=== PATIENT | female | born 1970 | race Native Hawaiian/Other Pacific Islander ===

== ENCOUNTER 2017-01-05 11:11 | Emergency (ER) | payer MEDICAID, OTHER ==
[~2017-01-05] VITALS: Ht 160 cm; Wt 72.5 kg
[~2017-01-05 11:11] MED LIST: METR-1 PO
[2017-01-05 11:15] VITALS: BP 145/83; PULSE 84; RESP 18; TEMP 98; O2SAT 99
[2017-01-05 11:30] LABS: BLOOD, URINE TRACE (NEG); GLUCOSE,URINE NEG (NEG); KETONE, URINE NEG (NEG); NITRITE,URINE NEG (NEG)
[2017-01-05 11:36] LABS: METHOD OF COLLECTION CLEAN CATCH
[2017-01-05 11:37] LABS: URINE COLOR STRAW (YELLW/STRAW)
[2017-01-05 11:38] LABS: BACTERIA, URINE MOD /hpf; COMMENT (UR) CULTURE INDICATED; COMMENT2 (UR) MUCOUS PRESENT; CULTURE IF INDICATED CULTURE INDICATED; RBC, URINE 0-3 /hpf (0-3)
--- NOTE | 2017-01-05 11:41 | PD ---
HPI Chief Complaint: Abdominal Pain Time Seen by Provider: 11:25 Travel History International Travel<30 days: No Contact w/Intl Traveler<30days: No Traveled to known affect area: No History of Present Illness HPI The patient was seen and examined in the presence of the nurse. This patient complains of pelvic pain with some vaginal bleeding. Duration one day. Symptoms severity is mild. No alleviating factors. She also complains of feeling weak. Then she goes on to mention that she is lightheaded and achy and she becomes tearful and seems very anxious and panicky. Denies suicidal ideation. She says she is been very stressed. PFS Past Medical History Diminished Hearing: No Reproductive: Yes (IUD IN PLACE) Immunizations Current: Yes ?: Not LMP: 12/26/16 : 5 Para: 4 Miscarriage: 1 Tubal Ligation: Yes Social History Alcohol Use: No Tobacco Use: Yes (08/31 ppd) Substance Use: No Allergies-Medications (Allergen,Severity, Reaction): Coded Allergies: No Known Allergies (Verified , 01/05/17) Reported Meds & Prescriptions Reported Meds & Active Scripts Active No Active Prescriptions or Reported Medications Review of Systems General / Constitutional: No: Fever Eyes: No: Visual changes HENT: Positive: Lightheadedness, No: Headaches Cardiovascular: No: Chest Pain or Discomfort Respiratory: No: Shortness of Breath Gastrointestinal: Positive: Abdominal Pain Genitourinary: Positive: Pelvic Pain, Vaginal Bleeding, No: Dysuria Musculoskeletal: Positive: Weakness, No: Pain Skin: No Rash Neurologic: Positive: Weakness, Dizziness Psychiatric: Positive: Anxiety Endocrine: No: Polydipsia Hematologic/Lymphatic: No: Easy Bruising Physical Exam Narrative GENERAL: Well-nourished, well-developed patient in no apparent distress but seems anxious and is tearful. SKIN: Focused skin assessment reveals no rash and nodules. Skin is Warm and dry. HEAD: Atraumatic. Normocephalic. EYES: Pupils equal and round. No scleral icterus. No injection or drainage. ENT: No nasal bleeding or discharge. Mucous membranes pink and moist. NECK: Trachea midline. No JVD. CARDIOVASCULAR: Regular rate and rhythm. No murmur appreciated. RESPIRATORY: No accessory muscle use. Clear to auscultation. Breath sounds equal bilaterally. GASTROINTESTINAL: Abdomen soft, non-tender, nondistended. Hepatic and splenic margins not palpable. MUSCULOSKELETAL: No obvious deformities. No clubbing. No cyanosis. No edema. NEUROLOGICAL: Awake and alert. No obvious cranial nerve deficits. Motor grossly within normal limits. Normal speech. PSYCHIATRIC: Anxious mood and affect; insight and judgment reasonable. Data Data Last Documented VS Vital Signs Date Time Temp Pulse Resp B/P Pulse Ox O2 Delivery O2 Flow Rate FiO2 01/05/17 11:51 69 20 123/72 100 Room Air 01/05/17 11:15 98.0 Orders Urinalysis - C+S If Indicated (01/05/17 11:22) Electrocardiogram (01/05/17 ) Iv Access Insert/Monitor (01/05/17 11:34) Complete Blood Count With Diff (01/05/17 11:34) Basic Metabolic Panel (Bmp) (01/05/17 11:34) Troponin I (01/05/17 11:34) Ckmb (Isoenzyme) Profile (01/05/17 11:34) Ed Urine Pregnancytest Poc (01/05/17 11:34) Urine Culture (01/05/17 11:25) Labs Laboratory Tests Test 01/05/17 01/05/17 11:25 11:40 Urine Collection Type CLEAN CATCH Urine Color STRAW Urine Turbidity SLIGHT Urine pH 6.0 Urine Specific [place] 1.003 Urine Protein NEG mg/dL Urine Glucose (UA) NEG mg/dL Urine Ketones NEG mg/dL Urine Occult Blood TRACE Urine Nitrite NEG Urine Bilirubin NEG Urine Leukocyte Esterase TRACE Urine RBC 0-3 /hpf Urine WBC 6-8 /hpf Urine Squamous Epithelial 6-8 /hpf Cells Urine Amorphous Sediment FEW Urine Bacteria MOD /hpf Microscopic Urinalysis Comment CULTURE INDICATED Urine Collection Time 1125 White Blood Count 8.9 TH/MM3 Red Blood Count 4.31 MIL/MM3 Hemoglobin 13.4 GM/DL Hematocrit 39.4 % Mean Corpuscular Volume 91.4 FL Mean Corpuscular Hemoglobin 31.2 PG Mean Corpuscular Hemoglobin 34.1 % Concent Red Cell Distribution Width 11.5 % Platelet Count 191 TH/MM3 Mean Platelet Volume 9.2 FL Neutrophils (%) (Auto) 66.8 % Lymphocytes (%) (Auto) 27.5 % Monocytes (%) (Auto) 5.1 % Eosinophils (%) (Auto) 0.3 % Basophils (%) (Auto) 0.3 % Neutrophils # (Auto) 5.9 TH/MM3 Lymphocytes # (Auto) 2.5 TH/MM3 Monocytes # (Auto) 0.5 TH/MM3 Eosinophils # (Auto) 0.0 TH/MM3 Basophils # (Auto) 0.0 TH/MM3 CBC Comment DIFF FINAL Differential Comment Sodium Level 141 MEQ/L Potassium Level 3.9 MEQ/L Chloride Level 107 MEQ/L Carbon Dioxide Level 26.3 MEQ/L Anion Gap 8 MEQ/L Blood Urea Nitrogen 8 MG/DL Creatinine 0.70 MG/DL Estimat Glomerular Filtration 90 ML/MIN Rate Random Glucose 97 MG/DL Calcium Level 8.7 MG/DL Total Creatine Kinase 68 U/L Troponin I LESS THAN 0.02 NG/ML MDM Medical Decision Making Medical Screen Exam Complete: Yes Emergency Medical Condition: Yes Medical Record Reviewed: Yes Differential Diagnosis Ectopic , dysfunctional uterine bleeding, anxiety Narrative Course I have reviewed the patient's electronic medical record. She was here 6 months ago with vaginal discharge complaint IV placed Urine is negative CBC is normal Metabolic profile is normal CK is normal Troponin is normal Urinalysis is not suspicious for infection but will be cultured Patient's vital signs and exam are normal. Stable for outpatient family doctor follow-up Diagnosis Primary Impression: Pelvic pain Additional Impressions: Generalized weakness Anxiety Additional Instructions: The patient was advised to follow up with their physician and return if they worsen. Med/Other Pt SpecificInfo: Other Scripts No Active Prescriptions or Reported Meds Disposition: 01 DISCHARGE HOME Condition: Stable Cam Tillman MD January 05, 2017 11:40
[2017-01-05 11:51] VITALS: BP 123/72; PULSE 69; RESP 20; O2SAT 100
[2017-01-05 11:57] LABS: AUTOMATED NEUTROPHIL # 5.9 TH/MM3 (1.8-7.7); BASOPHIL % 0.3 % (0.0-2.0); EOSINOPHIL % 0.3 % (0.0-4.0); HEMATOCRIT 39.4 % (35.0-46.0); HEMO FLAGS DIFF FINAL; LYMPH % 27.5 % (9.0-44.0); LYMPHOCYTE # 2.5 TH/MM3 (1.0-4.8); MEAN CELL VOLUME 91.4 FL (80.0-100.0); MEAN CORPUSCULAR HEMOGLOBIN 31.2 PG (27.0-34.0); MEAN CORPUSCULAR HGB CONC 34.1 % (32.0-36.0); MONO % 5.1 % (0.0-8.0); NEUT % 66.8 % (16.0-70.0); PLATELET COUNT 191 TH/MM3 (150-450); RED BLOOD COUNT 4.31 MIL/MM3 (4.00-5.30); RED CELL DISTRIBUTION WIDTH 11.5 % (11.6-17.2); WHITE BLOOD COUNT 8.9 TH/MM3 (4.0-11.0)
[2017-01-05 12:08] LABS: CHLORIDE 107 MEQ/L (98-107); POTASSIUM 3.9 MEQ/L (3.5-5.1); SODIUM (NA) 141 MEQ/L (136-145)
[2017-01-05 12:11] LABS: ANION GAP 8 MEQ/L (5-15); BICARBONATE 26.3 MEQ/L (21.0-32.0)
[2017-01-05 12:12] LABS: BLOOD UREA NITROGEN 8 MG/DL (7-18)
[2017-01-05 12:15] LABS: GLOMERULAR FILTRATION RATE 90 ML/MIN (>89)
[2017-01-05 12:19] LABS: CREATINE KINASE 68 U/L (26-192)
--- NOTE | 2017-01-06 06:21 | EKG ---
Date Performed: 01/05/2017 Time Performed: 11:41:08 PTAGE: 46 years EKG: Sinus rhythm Low QRS voltages in precordial leads Borderline ECG PREVIOUS TRACING : 01/18/2007 23.28 Compared to prior tracing no significant change DOCTOR: Prema Ibrahim Interpretating Date/Time 01/06/2017 06:20:13
== END 2017-01-05 12:52 | disposition home or self-care (01) ==
LOC: PHED 11:11
DX: R10.2 Pelvic and perineal pain (principal); R53.1 Weakness; R94.31 Abnormal electrocardiogram [ECG] [EKG]; F17.210 Nicotine dependence, cigarettes, uncomplicated; R42 Dizziness and giddiness; N93.9 Abnormal uterine and vaginal bleeding, unspecified; Z97.5 Presence of (intrauterine) contraceptive device
CPT/HCPCS: 80048; 81001; 82550; 84484; 84703; 85025; 87086; 93005